=== PATIENT | female | born 1995 | race Hispanic/Latino ===

== ENCOUNTER 2017-07-03 02:03 | Emergency (ER) | payer SELFPAY ==
--- NOTE | 2017-07-03 13:24 | CT ---
PRELIMINARY REPORT/[facility]/EMERGENTY AFTER-HOURS PROCEDURE CT Head Without Intravenous Contrast EXAM DATE/TIME: Exam ordered 07/03/2017 3:14 AM CLINICAL HISTORY: 21 years old, female; Signs and symptoms; Alteration of consciousness; Somnolence (drowsiness); Patie nt HX: ETOH. TECHNIQUE: Axial computed tomography images of the head/brain without intravenous contrast. COMPARISON: No relevant prior studies available. FINDINGS: Brain: Unremarkable. No hemorrhage. No significant white matter disease. No edema. Ventricles: Unremarkable. No ventriculomegaly. Bones/joints: Unremarkable. No acute fracture. Soft tissues: Unremarkable. Sinuses: Unremarkable as visualized. No acute sinusitis. Mastoid air cells: Unremarkable as visualized. No mastoid effusion. IMPRESSION: Normal head/brain CT. Thank you for allowing us to participate in the care of your patient. Dictated and Authenticated by: Eddei Llamas MD 07/03/2017 3:47 AM Central Time ([place] & [place]) FINAL REPORT NONCONTRAST HEAD CT: HISTORY: Altered mental status. ETOH. COMPARISON: None. TECHNIQUE: A noncontrast head CT is performed from the skull base to the skull vertex. FINDINGS: This report is in agreement with the preliminary report by [facility]. No acute intracranial process. POS: [facility]
--- NOTE | 2017-07-03 13:27 | CT ---
PRELIMINARY REPORT/[facility]/EMERGENTY AFTER-HOURS PROCEDURE CT Cervical Spine Without Intravenous Contrast EXAM DATE/TIME: Exam ordered 07/03/2017 3:17 AM CLINICAL HISTORY: 21 years old, female; Signs and symptoms; Weakness; Patient HX: ETOH. TECHNIQUE: Axial computed tomography images of the cervical spine without intravenous contrast. COMPARISON: No relevant prior studies available. FINDINGS: Vertebrae: Unremarkable. No acute fracture. Discs/spinal canal/neural foramina: No acute findings. No spinal canal stenosis. Soft tissues: Unremarkable. Lung apices: Unremarkable as visualized. IMPRESSION: Normal cervical spine CT. Thank you for allowing us to participate in the care of your patient. Dictated and Authenticated by: Eddie Llamas MD 07/03/2017 3:49 AM Central Time ([place] & [place]) FINAL REPORT CT CERVICAL SPINE WITHOUT CONTRAST: HISTORY: Altered mental status. COMPARISON: None. TECHNIQUE: CT cervical spine is performed without contrast. Reformatted images are submitted. FINDINGS: This report is in agreement with the preliminary report by [facility]. No cervical spine fracture. POS: [facility]
== END 2017-07-03 06:10 ==
LOC: ERS 02:03
DX: F10.129 Alcohol abuse with intoxication, unspecified (principal)
CPT/HCPCS: 70450; 72125; 96360

== ENCOUNTER 2017-07-22 13:49 | Emergency (ER) | payer SELFPAY ==
[2017-07-22] MEDS ORDERED: Ibuprofen 200 MG TAB ONE (14:21)
--- NOTE | 2017-07-22 14:32 | RAD ---
RIGHT WRIST 3 VIEWS: HISTORY: Wrist pain. The patient is status post fall on Tuesday. FINDINGS: There are no signs of a fracture of dislocation. If trauma is suspected to the scaphoid, a followup in 7-10 days would be recommended to exclude occult injury. IMPRESSION: No evidence of fracture. POS: [facility]
== END 2017-07-22 14:35 | disposition home or self-care (01) ==
LOC: ERS 13:49
DX: S63.501A Unspecified sprain of right wrist, initial encounter (principal); F32.9 Major depressive disorder, single episode, unspecified; F17.210 Nicotine dependence, cigarettes, uncomplicated; W19.XXXA Unspecified fall, initial encounter

== ENCOUNTER 2017-09-01 02:10 | Emergency (ER) | payer SELFPAY ==
[2017-09-01] MEDS ORDERED: Acetaminophen 325 MG TAB ONE (03:13)
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
== END 2017-09-01 05:00 | disposition home or self-care (01) ==
LOC: ERS 02:10
DX: S00.83XA Contusion of other part of head, initial encounter (principal); F32.9 Major depressive disorder, single episode, unspecified; F17.210 Nicotine dependence, cigarettes, uncomplicated; W50.0XXA Accidental hit or strike by another person, initial encounter
CPT/HCPCS: 70486

== ENCOUNTER 2018-04-24 19:13 | Emergency (ER) | payer SELFPAY ==
[2018-04-24] MEDS ORDERED: Ketorolac Tromethamine 30 MG/ML VIAL ONE ×2 (20:29)
[2018-04-24 21:09] LABS: Pregnancy Test - Urine (BHCG) Negative (Negative); Pregu Control Background? CLEAR/WHITE (CLR/WHITE); Pregu Control Bar Appear? YES (CONTROL BAR)
--- NOTE | 2018-04-24 22:46 | CT ---
CT CERVICAL SPINE WITHOUT CONTRAST: Comparison: 07-03-17 History: Fall. Pain. FINDINGS: No craniocervical disassociation. Appropriate alignment of the lateral masses of C1 and C2 as well as the facets. Intact odontoid process. There is no prevertebral soft tissue swelling. Soft tissue neck structures, upper mediastinum, and manas ng apices are unremarkable. No high grade central canal stenosis or high grade foraminal narrowing. Straightening of the normal cervical lordosis may be due to patient position, muscle spasm or cervica l collar. Current study does not assess for ligamentous injury. Cervical spine vertebral body height is maintained. No fracture. IMPRESSION: 1. No fracture. 2. Straightening of the normal cervical lordosis as detailed above. MRI if clinically warranted. POS: [facility]
--- NOTE | 2018-04-24 22:49 | CT ---
CT THORACIC SPINE WITHOUT CONTRAST: History: Fall. Pain. Status post fall, running down the stairs and slipped and fell down six stairs a nd landed on her pack. Post-traumatic pain. Pain with movement. Comparison: None. FINDINGS: Visualized mediastinum, lung parenchyma and solid organs are unremarkable. No retroperitoneal mass, l ymphadenopathy, or hematoma. Central spinal canal and neural foramina are patent. No malalignment on the sagittal reformatted images. Disc space heights are preserved. There is no becky dence of thoracic spine. IMPRESSION: No fracture. POS: [facility]
== END 2018-04-24 22:30 | disposition home or self-care (01) ==
LOC: ERS 19:13
DX: S16.1XXA Strain of muscle, fascia and tendon at neck level, initial encounter (principal); S29.012A Strain of muscle and tendon of back wall of thorax, initial encounter; F32.9 Major depressive disorder, single episode, unspecified; W17.89XA Other fall from one level to another, initial encounter
CPT/HCPCS: 72125; 72128; 81025; 96372; J1885

== ENCOUNTER 2019-01-09 16:06 | Emergency (ER) | payer SELFPAY ==
--- NOTE | 2019-01-09 16:25 | RAD ---
Exam:3 views left wrist HISTORY: Pain. COMPARISON: None FINDINGS: Chronic changes along the ulnar styloid. Intercarpal and radiocarpal joint spaces are preserved. No fracture. IMPRESSION: No fracture. If there is pain or point tenderness, consider immobilization and follow-up imaging in 7-10 days.
== END 2019-01-09 17:16 | disposition home or self-care (01) ==
LOC: ERS 16:06
DX: S63.502A Unspecified sprain of left wrist, initial encounter (principal); F32.9 Major depressive disorder, single episode, unspecified; F17.210 Nicotine dependence, cigarettes, uncomplicated; X50.9XXA Other and unspecified overexertion or strenuous movements or postures, initial encounter

== ENCOUNTER 2019-05-09 18:50 | Emergency (ER) | payer SELFPAY | END 2019-05-09 21:40 | disposition home or self-care (01) | LOC: ERS 18:50 | DX: S06.0X0A Concussion without loss of consciousness, initial encounter (principal); F32.9 Major depressive disorder, single episode, unspecified; F17.210 Nicotine dependence, cigarettes, uncomplicated; Z71.6 Tobacco abuse counseling; W22.01XA Walked into wall, initial encounter | CPT/HCPCS: 99406 ==

== ENCOUNTER 2020-08-01 23:02 | Emergency (ER) | payer MEDICAID, SELFPAY ==
[2020-08-02] MEDS ORDERED: Fluorescein Opthalmic Strip ONE (00:06)
== END 2020-08-02 00:35 | disposition home or self-care (01) ==
LOC: ERS 23:02
DX: H10.9 Unspecified conjunctivitis (principal)
CPT/HCPCS: 99283

== ENCOUNTER 2024-10-26 19:47 | Emergency (ER) | payer OTHER, BC ==
[2024-10-26 20:27] LABS: #Basophils 0.06 10x3/uL (0.0-0.2); #Eosinophils 0.50 10x3/uL (0.0-0.7); #Monocytes 0.90 10x3/uL (0.11-0.59); #Neutrophils 9.11 10x3/uL (1.40-6.50); %Basophils 0.4 % (0.0-1.0); %Eosinophils 3.2 % (0.0-10.0); %Lymphocytes 31.3 % (21.0-51.0); %Monocytes 5.8 % (0.0-10.0); %Neutrophils 58.9 % (42.0-75.0); Hematocrit 40.8 % (36.0-47.0); Hemoglobin 13.3 g/dL (12.0-16.0); Mean Corpuscular Hemoglobin 28.9 pg (27.0-31.0); Mean Corpuscular Volume 88.7 fL (78.0-98.0); Platelet Count 398 10x3/uL (130-400); Red Blood Cell (RBC) Count 4.60 mill/uL (4.20-5.40); White Blood Cell (WBC) Count 15.48 10x3/uL (4.8-10.8)
[2024-10-26 20:38] LABS: BHCG - Serum Negative (NEGATIVE); Pregs Control Background? CLEAR/WHITE (CLR/WHITE); Pregs Control Bar Appear? YES (CONTROL BAR)
[2024-10-26 20:47] LABS: ALT (SGPT) 25 U/L (Less than 34); AST (SGOT) 22 U/L (11-34); Albumin 4.2 g/dL (3.1-4.5); Alkaline Phosphatase 68 U/L (40-110); Anion Gap 14 mmol/L (10-20); BUN (Urea Nitrogen) 9 mg/dL (7.0-18.7); Bilirubin, Total 0.5 mg/dL (0.3-1.2); Calc. Creatinine Clearance 0 mL/min (70-130); Calcium 9.2 mg/dL (7.8-10.44); Carbon Dioxide 24 mmol/L (22-29); Chloride 105 mmol/L (98-107); Globulin 3.0 g/dL (2.4-3.5); Glucose 95 mg/dL (70-105); Lipase 38 U/L (8-78); Potassium 3.9 mmol/L (3.5-5.1); Sodium 139 mmol/L (136-145)
[2024-10-26 23:21] LABS: Bacteria/HPF None Seen HPF (None Seen); CAUTI Indications for Culture Dysuria,urgency,freq; Glucose, Urine (Dipstick) Normal (Negative); Leukocyte Negative Leu/uL (Negative); Protein, Urine (Dipstick) Negative (Neg-Trace); RBC/HPF 0-3 HPF (0-3); Specific Gravity, Urine 1.010 (1.002-1.036); WBC/HPF 0-3 HPF (0-3)
[2024-10-26 23:22] LABS: Urine Culture Reflex No No
== END 2024-10-27 00:12 | disposition home or self-care (01) ==
LOC: ERS 19:47
DX: R10.30 Lower abdominal pain, unspecified (principal); N64.4 Mastodynia
CPT/HCPCS: 36415; 80053; 81001; 83690; 84703; 85025; 99284